=== PATIENT | male | born 1945 | race Caucasian/White ===

== ENCOUNTER 2020-01-16 17:36 | Emergency (ER) | payer OTHER ==
[~2020-01-16] VITALS: Ht 165.1 cm; Wt 88.5 kg
--- NOTE | 2020-01-16 17:36 | NUR ---
PT BIBA ALS. ON BED DELAY
--- NOTE | 2020-01-16 17:41 | NUR ---
ILENE AKHTAR ALS TO ER BED 05.
[2020-01-16 17:50] VITALS: BP 110/70
[2020-01-16 17:57] VITALS: BP 110/70
--- NOTE | 2020-01-16 18:02 | NUR ---
biba bls came home c/o generalized body weakness .no sob .Pt aox 4 , afibrile , ambulatory with assistance , pink palpebral conjunctiva , anicteric sclera .sce , round soft abdomen .,denies pain. denies n/v. pmhxs htn .PE.
--- NOTE | 2020-01-16 18:02 | NUR ---
pt hook to panel monitor , o2 sat at 95 percint. vs stable.
[2020-01-16] MEDS ORDERED: traMADol 50 MG TAB PO ONE (19:00)
--- NOTE | 2020-01-16 19:05 | NUR ---
ERMD ALBERTO AT BEDSIDE EVALUATING PT.
--- NOTE | 2020-01-16 19:09 | NUR ---
give report to jackie cassidy.
--- NOTE | 2020-01-16 19:33 | NUR ---
PT TAKEN TO XRAY
--- NOTE | 2020-01-16 21:30 | NUR ---
PT PROVIDED WITH FWW. ROAD TESTED. PT ABLE TO AMBULATE WITH EASE. NO COMPLICATIONS NOTED.
== END 2020-01-16 21:56 | disposition home or self-care (01) ==
LOC: MED 17:36
DX: S39.012A Strain of muscle, fascia and tendon of lower back, initial encounter (principal); I10 Essential (primary) hypertension; Z98.890 Other specified postprocedural states; W19.XXXA Unspecified fall, initial encounter; Y93.89 Activity, other specified; Y92.89 Other specified places as the place of occurrence of the external cause; Y99.8 Other external cause status
CPT/HCPCS: 73502; 73562; 99284